=== PATIENT | female | born 1955 | race African-American/Black ===

== ENCOUNTER 2020-03-15 09:16 | Inpatient (IN) ==
[2020-03-15] MEDS ORDERED: IOPAMIDOL 100 ML BOTTLE IV ONE (09:17)
[2020-03-15] MEDS ORDERED: 0.9 % SODIUM CHLORIDE 1,000 ML IV ONE ×3 (09:25→14:42)
[2020-03-15 10:02] LABS: Basophils # (Auto) 0.04 K/mcL (0.00-0.20); Basophils % (Auto) 0.3 % (0.0-2.0); Eosinophils # (Auto) 0.12 K/mcL (0.00-0.70); Eosinophils % (Auto) 0.9 % (0.0-7.0); Hematocrit 53.8 % (36.0-48.0); Hemoglobin 17.9 g/dL (12.0-15.0); Lymphocytes % (Auto) 21.7 % (15.0-49.0); Mean Cell Volume 95.1 fL (80.0-100.0); Mean Corpuscular HGB Conc 33.3 g/dL (31.0-36.0); Mean Platelet Volume 8.7 fL (7.4-10.4); Monocytes # (Auto) 0.79 K/mcL (0.10-0.90); Monocytes % (Auto) 5.7 % (1.0-12.0); Neutrophils % (Auto) 71.4 % (38.0-78.0); Platelet Count 392 K/mcL (140-440); RBC 5.66 M/mcL (4.00-5.20); Red Cell Distribution Width 12.7 % (11.5-14.5); WBC 13.8 K/mcL (4.5-11.0)
[2020-03-15 10:12] LABS: POC Blood Urea Nitrogen 21 mg/dL (6-20); POC CO2 22 mmol/L (22-30); POC Calcium, Ionized 1.15 mmEq/L (1.16-1.32); POC Chloride 103 mEq/L (96-108); POC Creatinine 1.3 mg/dL (0.6-1.2); POC Glucose, Random 167 mg/dL (70-105); POC Hematocrit 51 % (36-48); POC Potassium 4.1 mEql/L (3.3-5.1); POC Sodium 136 mEq/L (133-145)
[2020-03-15 10:22] LABS: ALT/SGPT 16 U/L (<40); AST/SGOT 37 U/L (<32); Albumin 3.9 gm/dL (3.2-5.2); Alkaline Phosphatase 68 U/L (39-117); Bilirubin,Total 0.3 mg/dL (0.1-1.0); Blood Urea Nitrogen 19 mg/dL (8-23); Calcium 9.8 mg/dL (8.6-10.4); Carbon Dioxide 20 mmol/L (22-30); Chloride 101 mmol/L (96-108); Glomerular Filtration Rate 39; Glucose 184 mg/dL (70-105)
[2020-03-15] MEDS ORDERED: diphenhydrAMINE 50 MG/ML VIAL IV ONE (11:56)
[2020-03-15 13:07] LABS: Appearance,Urine CLEAR (Clear); Bilirubin,Urine Negative (Negative); Color,Urine YELLOW; Culture Indicated,Urine No; Glucose,Urine (UA) Negative (Negative); Ketones,Urine Negative (Negative); Leukocyte Esterase,Urine Negative /ug (Negative); Mucus,Urine FEW /hpf; Nitrate,Urine Negative (Negative); Protein,Urine Negative (Negative); Specific Gravity,Urine 1.014 (1.000-1.035); Urine Blood Negative (Negative); Urine Hyaline Cast 1 /lph (0-2); Urine RBC 1 /hpf (0-3); Urine Squamous Epithelial Cell 0 /hpf (0-4); Urine WBC < 1 /hpf (0-4); Urobilinogen,Urine Negative
[2020-03-15 13:40] LABS: POC Calcium, Ionized 1.07 mmEq/L (1.16-1.32); POC Creatinine 0.8 mg/dL (0.6-1.2); POC Potassium 4.3 mEql/L (3.3-5.1)
--- NOTE | 2020-03-15 15:59 | Cat Scan Report ---
History: Abdominal pain, nausea, vomiting, diarrhea, prior mastectomy for breast cancer technique: The patient was imaged following intravenous but no oral contrast scanning from the thoracic inlet through the symphysis pubis. Sagittal and coronal reformats were created along with axial MIPS images of the chest. The radiation exposure was limited using dose reduction technology. FINDINGS: CHEST: There is subtle subpleural fibrosis anteriorly in the lingula. This may be from prior radiation therapy. Contiguous with the minor fissure on the superior aspect of the right middle lobe there is a noncalcified pleural nodule which measures 3 x 4 mm. This is seen on axial image #51. There is a similar pleural-based nodule in the lingula seen on image #56 which measures there is no evidence of pulmonary metastasis or primary lung cancer. No emphysema is present. There is no pleural effusion. Mediastinum and hilar normal. The heart is normal in size and contour. There are numerous surgical clips in the right axilla. The patient is to have had reconstructive surgery of the right breast. There is no evidence of a chest wall tumor. Abdomen and pelvis: The liver is normal in size and homogeneous. There is mild generalized fatty infiltration. Spleen is normal in size and homogeneous. There is atrophy of the pancreas. The gallbladder is been removed. The bile ducts are nondilated. The adrenals are normal and symmetric. There is a parenchymal scar laterally in the upper portion of left kidney. The left kidney is otherwise normal. In the lower portion of the right kidney there is a 1.5 cm cyst which contains two calculi within the lumen. The larger calculus is 8 mm. No hydronephrosis or inflammation are present in either kidney. Patient has an elongated: With large amount liquefied stool. Small intestine also contains a moderate amount of liquid but is nondistended. There is no evidence of diverticulitis or inflammatory bowel disease. Uterus and ovaries have been removed. Urinary bladder appears normal. There is a small amount of ascites fluid deep in the lower pelvis. No adenopathy or mass are seen within the abdomen or pelvis. Bone windows show no lytic or blastic metastasis. There is severe disc space narrowing at L5-S1. Patient has a spinal stimulator with electrodes in the midthoracic spinal canal. The power pack is in the right flank. Scattered calcified plaques are present along the wall of normal caliber abdominal aorta. IMPRESSION: No evidence of metastasis Large amount of liquefied stool in the colon and large amount of ingested food in the stomach. No acute abnormality within the chest abdomen or pelvis. Small pleural/parenchymal scars contiguous with the right minor and left major fissures Interpreted and Authenticated by: Saúl Ware 03/15/20
--- NOTE | 2020-03-15 17:25 | Emergency Department Note ---
Syncope HPI General Chief Complaint: Syncope Stated Complaint: low BP, syncope, vomiting, diarrhea Time Seen by Provider: 03/15/20 10:01 Source: patient and EMS Mode of arrival: EMS Limitations: no limitations History of Present Illness HPI Narrative: Narrative: 64-year-old female presents with nausea, vomiting, and diarrhea and a syncopal episode this morning. States it all started at 8:30 AM. She woke up and felt kind of nauseated and then had multiple episodes of diarrhea and vomited 1 time. States her vomit smells horrible like stool. She did notice bright red in her stool and was not sure if it was more she no cherries that she ate or blood. States she did not get lightheaded and passed out until after the multiple episodes of diarrhea and vomiting. States she thinks she ate some chili last night that was not cooked all the way and that is her belief of what is going on. No cough or cold symptoms. No fever or chills. She does not have any pain anywhere. Just feels kind of lightheaded at times especially when getting up or moving. Related Data Home Medications Medication Instructions Recorded Confirmed diltiazem HCl 360 mg PO QDAY 11/21/19 11/21/19 esomeprazole magnesium [Nexium] 40 mg PO QDAY 11/21/19 11/21/19 fenofibrate 150 mg PO QDAY 11/21/19 11/21/19 levothyroxine [Synthroid] 25 mcg PO QDAY 11/21/19 11/21/19 lisinopril 20 mg PO QDAY 11/21/19 11/21/19 lorazepam 1 mg PO HS 11/21/19 11/21/19 methadone 20 mg PO HS 11/21/19 11/21/19 nortriptyline 20 mg PO QDAY 11/21/19 11/21/19 venlafaxine 225 mg PO QDAY 11/21/19 11/21/19 Previous Rx's Medication Instructions Recorded tramadol 50 mg PO Q6H PRN #20 tab 11/21/19 Allergies Allergy/AdvReac Type Severity Reaction Status Date / Time bee venom protein (honey bee) Allergy Severe Anaphylaxis Verified 03/15/20 09:25 meperidine [From Demerol] Allergy Severe Redness of Verified 03/15/20 09:25 Skin povidone-iodine Allergy Verified 03/15/20 09:25 [From Betadine] soap [From Betadine] Allergy Verified 03/15/20 09:25 Amoxicillin [From Augmentin] AdvReac Intermediate Vomiting Verified 03/15/20 09:25 clavulanic acid AdvReac Intermediate Vomiting Verified 03/15/20 09:25 [From Augmentin] metformin AdvReac Intermediate Nausea Verified 03/15/20 09:25 morphine AdvReac Intermediate Vomiting Verified 03/15/20 09:25 Review of Systems ROS ROS Narrative: Narrative: All systems ED: reviewed and negative except as stated. ON LICENSE OF [facility] Narrative Patient History Narrative: Narrative: Medical/Surgical/Family History All Active Problems (Updated 03/15/20 @ 17:35 by ANTONIO Leroy) Weakness (Acute) Orthostatic hypotension (Acute) Gastroenteritis (Acute) Syncope (Acute) Nausea vomiting and diarrhea (Acute) Acute dehydration (Acute) Anxiety (Acute) Hyperlipidemia (Acute) GERD (gastroesophageal reflux disease) (Acute) Hypertension (Acute) Hypothyroidism (Acute) Distal radial fracture (Acute) Abrasion (Acute) Fall (Acute) Surgical History History of appendectomy (Acute) History of cholecystectomy (Acute) History of hysterectomy (Acute) History of tonsillectomy (Acute) Social History Smoking Status: Current every day smoker Alcohol Intake Frequency: does not drink Substance Use: does not use Exam Narrative Narrative: Narrative: General Limitations: no limitations Head Head: Present atraumatic and normocephalic Eye Eye: Present normal appearance; Absent conjunctival injection ENT ENT: Present TM's normal bilaterally and normal external ear exam; Absent mucous membranes moist (dry), nasal congestion and nasal tones Neck Neck: Present normal inspection and trachea midline; Absent lymphadenopathy Chest Chest: Present symmetric chest wall rise Respiratory Respiratory: Present normal lung sounds bilaterally; Absent respiratory distress, rales/crackles, wheezes, stridor and accessory muscle use Cardiovascular Cardiovascular: Present regular rate and normal heart sounds Adbominal Abdominal: Present soft and normal bowel sounds; Absent distention, tenderness, guarding, rebound and rigidity Rectal Rectal: Present normal inspection, normal rectal tone, heme (-) stool and other (incontinent of stool, diarrhea) Extremities Extremities: Present normal inspection and normal capillary refill; Absent pedal edema Neurological Neurological: Present alert and oriented X3 Psychiatric Psychiatric: Present normal affect and normal mood Skin Skin: Present warm (WNL), dry, intact and normal color Course Course Course Narrative: [id number] the course of the stay we have rechecked orthostatic vital signs multiple times and she continues to have significant hypotension with standing. We have now given her 3 L of fluid and she is improving some but still continues to have diarrhea and some hypotension so we will continue to monitor her her at this time. Vital Signs Vital signs: Vital Signs Pulse Rate 80 03/15/20 09:16 Respiratory Rate 22 03/15/20 09:16 Blood Pressure 78/47 03/15/20 09:16 Pulse Oximetry (%) 97 03/15/20 09:16 Pulse Rate 70 03/15/20 17:01 Respiratory Rate 13 03/15/20 17:01 Blood Pressure 132/62 03/15/20 17:01 Pulse Oximetry (%) 97 03/15/20 17:01 MDM MDM Narrative Medical decision making narrative: Narrative: 539 I did speak with Dr[address] Obrien, hospitalist who agrees to accept this patient. Lab Data Lab results reviewed: Yes I reviewed the patient's lab results. Result diagrams: 03/15/20 09:31 03/15/20 09:31 Labs: Lab Results 03/15/20 03/15/20 03/15/20 Range/Units 09:31 09:31 09:31 WBC 13.8 H (4.5-11.0) K/mcL RBC 5.66 H (4.00-5.20) M/mcL Hgb 17.9 H (12.0-15.0) g/dL Hct 53.8 H (36.0-48.0) % POC Hct (36-48) % MCV 95.1 (80.0-100.0) fL MCH 31.6 (26.0-34.0) pg MCHC 33.3 (31.0-36.0) g/dL RDW 12.7 (11.5-14.5) % Plt Count 392 (140-440) K/mcL MPV 8.7 (7.4-10.4) fL Neut % (Auto) 71.4 (38.0-78.0) % Lymph % (Auto) 21.7 (15.0-49.0) % [place] % (Auto) 5.7 (1.0-12.0) % Eos % (Auto) 0.9 (0.0-7.0) % Baso % (Auto) 0.3 (0.0-2.0) % Lymph # (Auto) 3.00 (1.50-4.80) K/mcL [place] # (Auto) 0.79 (0.10-0.90) K/mcL Eos # (Auto) 0.12 (0.00-0.70) K/mcL Baso # (Auto) 0.04 (0.00-0.20) K/mcL Absolute Neutrophils 9.89 H (1.80-8.00) K/mcL POC Sodium (133-145) mEq/L Sodium 136 (133-145) mmol/L POC Potassium (3.3-5.1) mEql/L Potassium 4.4 (3.3-5.1) mmol/L POC Chloride (96-108) mEq/L Chloride 101 (96-108) mmol/L Carbon Dioxide 20 L (22-30) mmol/L POC Total CO2 (22-30) mmol/L Anion Gap 15.0 (8.0-16.0) POC BUN (6-20) mg/dL BUN 19 (8-23) mg/dL Creatinine 1.4 H (0.6-1.1) mg/dL POC Creatinine (0.6-1.2) mg/dL GFR Calculation 39 Glucose 184 H (70-105) mg/dL POC Glucose (70-105) mg/dL Calcium 9.8 (8.6-10.4) mg/dL POC WB Ioniz Calcium (1.16-1.32) mmEq/L Total Bilirubin 0.3 (0.1-1.0) mg/dL AST 37 H (<32) U/L ALT 16 (<40) U/L Alkaline Phosphatase 68 (39-117) U/L Troponin T < 0.01 (<0.03) ng/mL Total Protein 7.9 (5.9-8.4) gm/dL Albumin 3.9 (3.2-5.2) gm/dL Globulin 4.0 H (2.2-3.7) gm/dL Albumin/Globulin Ratio 1.0 (1.0-2.3) Urine Color Urine Appearance (Clear) Urine pH (5.0-9.0) Ur Specific [place] (1.000-1.035) Urine Protein (Negative) mg/dL Urine Glucose (UA) (Negative) mg/dL Urine Ketones (Negative) mg/dL Urine Occult Blood (Negative) mg/dL Urine Nitrate (Negative) Urine Bilirubin (Negative) mg/dL Urine Urobilinogen mg/dL Ur Leukocyte Esterase (Negative) /ug Urine RBC (0-3) /hpf Urine WBC (0-4) /hpf Ur Squamous Epith Cells (0-4) /hpf Urine Bacteria (0) /hpf Hyaline Casts (0-2) /lph Urine Mucus (None) /hpf Ur Culture Indicated? 03/15/20 03/15/20 03/15/20 Range/Units 10:02 11:20 13:35 WBC (4.5-11.0) K/mcL RBC (4.00-5.20) M/mcL Hgb (12.0-15.0) g/dL Hct (36.0-48.0) % POC Hct 51 H 45 (36-48) % MCV (80.0-100.0) fL MCH (26.0-34.0) pg MCHC (31.0-36.0) g/dL RDW (11.5-14.5) % Plt Count (140-440) K/mcL MPV (7.4-10.4) fL Neut % (Auto) (38.0-78.0) % Lymph % (Auto) (15.0-49.0) % [place] % (Auto) (1.0-12.0) % Eos % (Auto) (0.0-7.0) % Baso % (Auto) (0.0-2.0) % Lymph # (Auto) (1.50-4.80) K/mcL [place] # (Auto) (0.10-0.90) K/mcL Eos # (Auto) (0.00-0.70) K/mcL Baso # (Auto) (0.00-0.20) K/mcL Absolute Neutrophils (1.80-8.00) K/mcL POC Sodium 136 138 (133-145) mEq/L Sodium (133-145) mmol/L POC Potassium 4.1 4.3 (3.3-5.1) mEql/L Potassium (3.3-5.1) mmol/L POC Chloride 103 106 (96-108) mEq/L Chloride (96-108) mmol/L Carbon Dioxide (22-30) mmol/L POC Total CO2 22 21 L (22-30) mmol/L Anion Gap (8.0-16.0) POC BUN 21 H 22 H (6-20) mg/dL BUN (8-23) mg/dL Creatinine (0.6-1.1) mg/dL POC Creatinine 1.3 H 0.8 (0.6-1.2) mg/dL GFR Calculation Glucose (70-105) mg/dL POC Glucose 167 H 163 H (70-105) mg/dL Calcium (8.6-10.4) mg/dL POC WB Ioniz Calcium 1.15 L 1.07 L (1.16-1.32) mmEq/L Total Bilirubin (0.1-1.0) mg/dL AST (<32) U/L ALT (<40) U/L Alkaline Phosphatase (39-117) U/L Troponin T (<0.03) ng/mL Total Protein (5.9-8.4) gm/dL Albumin (3.2-5.2) gm/dL Globulin (2.2-3.7) gm/dL Albumin/Globulin Ratio (1.0-2.3) Urine Color Yellow Urine Appearance Clear (Clear) Urine pH 5.0 (5.0-9.0) Ur Specific [place] 1.014 (1.000-1.035) Urine Protein Negative (Negative) mg/dL Urine Glucose (UA) Negative (Negative) mg/dL Urine Ketones Negative (Negative) mg/dL Urine Occult Blood Negative (Negative) mg/dL Urine Nitrate Negative (Negative) Urine Bilirubin Negative (Negative) mg/dL Urine Urobilinogen Negative mg/dL Ur Leukocyte Esterase Negative (Negative) /ug Urine RBC 1 (0-3) /hpf Urine WBC < 1 (0-4) /hpf Ur Squamous Epith Cells 0 (0-4) /hpf Urine Bacteria None (0) /hpf Hyaline Casts 1 (0-2) /lph Urine Mucus Few A (None) /hpf Ur Culture Indicated? No Radiology Data Radiology results reviewed: Yes I reviewed the patient's radiology results. Discharge Plan Patient/Caregiver Discharge Instructions Pt seen by MANUFACTURING TEACHER/PA only: Yes Clinical Impression: Orthostatic hypotension, Gastroenteritis, Syncope, Nausea vomiting and diarrhea, Acute dehydration Patient Disposition: Xfer As Outpt/Obs ([facility]) Condition: Fair Follow up with: Emilia Carl ARNP [Primary Care Provider] - Prescriptions: No Action nortriptyline 10 mg Capsule 20 mg PO QDAY RF: 0 methadone 10 mg Tablet 20 mg PO HS RF: 0 lisinopril 20 mg Tablet 20 mg PO QDAY RF: 0 diltiazem HCl 360 mg Capsule,Extended Release 24 Hr 360 mg PO QDAY RF: 0 levothyroxine [Synthroid] 25 mcg Tablet 25 mcg PO QDAY RF: 0 esomeprazole magnesium [Nexium] 40 mg Capsule,Delayed Release(Dr/Ec) 40 mg PO QDAY RF: 0 lorazepam 1 mg Tablet 1 mg PO HS RF: 0 fenofibrate 150 mg Capsule 150 mg PO QDAY RF: 0 venlafaxine 225 mg Tablet Extended Release 24hr 225 mg PO QDAY RF: 0 tramadol 50 mg tablet 50 mg PO Q6H PRN (Reason: pain) Qty: 20 RF: 0
--- NOTE | 2020-03-15 18:11 | Internal Med History&Physical ---
HPI History of Present Illness Patient information: Note initiated : 03/15/20 at 6:09 pm Service Date, if different from initiated Date: [] Patient: Ida Victoria a 64 y/o F admitted on for low BP, syncope, vomiting, diarrhea. Chief Complaint: [] History of present illness: Ms. Victoria is a 64 year old F Presents to the ED after syncopal episode. Her son called EMS. Patient reports she was feeling fine yesterday. She had chili last night and believes that the meat was not cooked fully. She went to bed feeling okay and then this morning started having diarrhea. She describes as watery diarrhea and denies bloody stools. She said she has had between 10 and 15 episodes today. She also had nausea vomiting and her vomitus was brown nonbloody. Becoming quite lightheaded. And then passed out at home. He denies abdominal pain. In the ED she was found to be severely dehydrated with acute kidney injury. CT abdomen pelvis showed a lot of food in the stomach and stool in the colon but no other acute issues. Was given multiple boluses of IV fluid but is still quite symptomatic when she stands with multiple positive orthostatics. Review of Systems: Pertinent positives as above. Denies headache/fever/chills/chest or abdominal pain/cough/dyspnea. Many 10 point review of system reviewed negative PFSH PFSH All Active Problems (Updated 03/15/20 @ 17:35 by ANTONIO Leroy) Weakness (Acute) Orthostatic hypotension (Acute) Gastroenteritis (Acute) Syncope (Acute) Nausea vomiting and diarrhea (Acute) Acute dehydration (Acute) Anxiety (Acute) Hyperlipidemia (Acute) GERD (gastroesophageal reflux disease) (Acute) Hypertension (Acute) Hypothyroidism (Acute) Distal radial fracture (Acute) Abrasion (Acute) Fall (Acute) Surgical History History of appendectomy (Acute) History of cholecystectomy (Acute) History of hysterectomy (Acute) History of tonsillectomy (Acute) Social History smoking status: Current every day smoker alcohol intake frequency: does not drink substance use type: does not use MEDS/ALLERGIES Home Medications and Allergies Home Medications Medication Instructions Recorded Confirmed Type diltiazem HCl 360 mg PO QDAY 11/21/19 11/21/19 History esomeprazole magnesium [Nexium] 40 mg PO QDAY 11/21/19 11/21/19 History fenofibrate 150 mg PO QDAY 11/21/19 11/21/19 History levothyroxine [Synthroid] 25 mcg PO QDAY 11/21/19 11/21/19 History lisinopril 20 mg PO QDAY 11/21/19 11/21/19 History lorazepam 1 mg PO HS 11/21/19 11/21/19 History methadone 5 mg PO Q6H 11/21/19 03/15/20 History nortriptyline 20 mg PO QDAY 11/21/19 11/21/19 History tramadol 50 mg PO Q6H PRN #20 tab 11/21/19 Rx venlafaxine 225 mg PO QDAY 11/21/19 11/21/19 History pregabalin 200 mg PO TID 03/15/20 03/15/20 History Allergies Allergy/AdvReac Type Severity Reaction Status Date / Time bee venom protein (honey bee) Allergy Severe Anaphylaxis Verified 03/15/20 09:25 meperidine [From Demerol] Allergy Severe Redness of Verified 03/15/20 09:25 Skin povidone-iodine Allergy Verified 03/15/20 09:25 [From Betadine] soap [From Betadine] Allergy Verified 03/15/20 09:25 Amoxicillin [From Augmentin] AdvReac Intermediate Vomiting Verified 03/15/20 09:25 clavulanic acid AdvReac Intermediate Vomiting Verified 03/15/20 09:25 [From Augmentin] metformin AdvReac Intermediate Nausea Verified 03/15/20 09:25 morphine AdvReac Intermediate Vomiting Verified 03/15/20 09:25 EXAM Constitutional Vitals: Pulse Resp BP Pulse Ox 72 16 133/67 97 03/15/20 17:31 03/15/20 17:31 03/15/20 17:31 03/15/20 17:31 Exam: General: Alert, Awake, No acute Distress Eyes/N/T: EOMI, dry mucous membranes Head/Neck: neck supple, CV: RRR, 1/6SM Pulm: Clear b/l, no wheezing/rhonchi/rales Abd: soft, nontender, +BS x4 Ext: no clubbing/cyanosis/edema Neuro: Alert, no focal deficits, moves all extremities, Skin: warm/dry DATA Data Completed and Pending Labs: Labs from last 24 hours 03/15/20 03/15/20 03/15/20 13:35 11:20 10:02 WBC RBC Hgb Hct POC Hct 45 51 H MCV MCH MCHC RDW Plt Count MPV Neut % (Auto) Lymph % (Auto) [place] % (Auto) Eos % (Auto) Baso % (Auto) Lymph # (Auto) [place] # (Auto) Eos # (Auto) Baso # (Auto) Absolute Neutrophils POC Sodium 138 136 Sodium POC Potassium 4.3 4.1 Potassium POC Chloride 106 103 Chloride Carbon Dioxide POC Total CO2 21 L 22 Anion Gap POC BUN 22 H 21 H BUN Creatinine POC Creatinine 0.8 1.3 H GFR Calculation Glucose POC Glucose 163 H 167 H Calcium POC WB Ioniz Calcium 1.07 L 1.15 L Total Bilirubin AST ALT Alkaline Phosphatase Troponin T Total Protein Albumin Globulin Albumin/Globulin Ratio Urine Color Yellow Urine Appearance Clear Urine pH 5.0 Ur Specific [place] 1.014 Urine Protein Negative Urine Glucose (UA) Negative Urine Ketones Negative Urine Occult Blood Negative Urine Nitrate Negative Urine Bilirubin Negative Urine Urobilinogen Negative Ur Leukocyte Esterase Negative Urine RBC 1 Urine WBC < 1 Ur Squamous Epith Cells 0 Urine Bacteria None Hyaline Casts 1 Urine Mucus Few A Ur Culture Indicated? No 03/15/20 03/15/20 03/15/20 09:31 09:31 09:31 WBC 13.8 H RBC 5.66 H Hgb 17.9 H Hct 53.8 H POC Hct MCV 95.1 MCH 31.6 MCHC 33.3 RDW 12.7 Plt Count 392 MPV 8.7 Neut % (Auto) 71.4 Lymph % (Auto) 21.7 [place] % (Auto) 5.7 Eos % (Auto) 0.9 Baso % (Auto) 0.3 Lymph # (Auto) 3.00 [place] # (Auto) 0.79 Eos # (Auto) 0.12 Baso # (Auto) 0.04 Absolute Neutrophils 9.89 H POC Sodium Sodium 136 POC Potassium Potassium 4.4 POC Chloride Chloride 101 Carbon Dioxide 20 L POC Total CO2 Anion Gap 15.0 POC BUN BUN 19 Creatinine 1.4 H POC Creatinine GFR Calculation 39 Glucose 184 H POC Glucose Calcium 9.8 POC WB Ioniz Calcium Total Bilirubin 0.3 AST 37 H ALT 16 Alkaline Phosphatase 68 Troponin T < 0.01 Total Protein 7.9 Albumin 3.9 Globulin 4.0 H Albumin/Globulin Ratio 1.0 Urine Color Urine Appearance Urine pH Ur Specific [place] Urine Protein Urine Glucose (UA) Urine Ketones Urine Occult Blood Urine Nitrate Urine Bilirubin Urine Urobilinogen Ur Leukocyte Esterase Urine RBC Urine WBC Ur Squamous Epith Cells Urine Bacteria Hyaline Casts Urine Mucus Ur Culture Indicated? A/P Narrative A/P Narrative: A: *Acute gastroenteritis, nonbloody, with N/V/D: 2/2 likely food poisoining *Hypotension: improved in ED with IV fluids but still quite orthostatic *Non-gap Met acidosis: 2/2 above *KUSHAL on CKD III: *Hemoconcentrated: *DM w/neuropathy: on insulin pump *HTN: *GERD: *Hypothyroidism: *Chronic pain/neuropathy: *Tobacco abuse: P: -IVF's -Monitor electrolytes -Empiric antibiotics given severity of episode requiring hospitalization -Stool studies including EHEC -hold Dilt/lisinopril for hypotension and KUSHAL - -insulin pump -Smoking cessation counseling -ppx: Lovenox/home ppi full Code Time Spent With Patient Time: Total time spent is greater than 50% in coordination of care (as documented) at patient's floor/unit and/or counseling patient:
[2020-03-15] MEDS ORDERED: IPRATROPIUM/ALBUTEROL 3 ML AMPUL.NEB NEB PRN (20:43)
[2020-03-15] MEDS ORDERED: ONDANSETRON 4 MG/2 ML VIAL IV PRN (20:43)
[2020-03-15] MEDS ORDERED: DEXTROSE 50% 50 ML VIAL IV PRN (20:43)
[2020-03-15] MEDS ORDERED: POTASSIUM CHLORIDE 40 MEQ in DEXTROSE 5% IN WATER 500 ML IV PRN (20:43)
[2020-03-15] MEDS ORDERED: ACETAMINOPHEN 325 MG TABLET PO PRN (20:43)
[2020-03-15] MEDS ORDERED: MAGNESIUM SULFATE 2 GM/50 ML BAG IV PRN (20:43)
[2020-03-15] MEDS ORDERED: DEXTROSE 31 GM ORAL.SUSP PO PRN (20:43)
[2020-03-15] MEDS ORDERED: POTASSIUM CHLORIDE 20 MEQ TABLET PO PRN ×2 (20:43)
[2020-03-15 20:53] LABS: Blood Urea Nitrogen 18 mg/dL (8-23); Calcium 8.5 mg/dL (8.6-10.4); Carbon Dioxide 22 mmol/L (22-30); Chloride 101 mmol/L (96-108); Glomerular Filtration Rate 78; Glucose 89 mg/dL (70-105)
[2020-03-15] MEDS: INSULIN LISPRO 1 UNIT/0.01 ML UNIT SQ SCH (22:51)
[2020-03-15] MEDS ORDERED: METHADONE 5 MG TABLET PO ONE (23:25)
[2020-03-15] MEDS: 0.9 % SODIUM CHLORIDE 10 ML SYRINGE IV SCH (23:35)
[2020-03-15] MEDS: CIPROFLOXACIN 400 MG/200 ML BAG IV SCH (23:38)
[2020-03-15] MEDS: metroNIDAZOLE 500 MG/100 ML BAG IV SCH (23:39)
[2020-03-15] MEDS: 0.9 % SODIUM CHLORIDE 1,000 ML IV SCH (23:40)
[2020-03-15] MEDS: METHADONE 5 MG PO SCH (23:42)
[2020-03-16] MEDS ORDERED: LORazepam 1 MG TABLET ONE (00:06)
[2020-03-16] MEDS: METHADONE 5 MG PO SCH (03:46)
[2020-03-16] MEDS ORDERED: METHADONE 5 MG TABLET PO ONE (03:51)
[2020-03-16] MEDS: 0.9 % SODIUM CHLORIDE 10 ML SYRINGE IV SCH (04:41)
[2020-03-16] MEDS: metroNIDAZOLE 500 MG/100 ML BAG IV SCH (05:23)
[2020-03-16] MEDS: INSULIN LISPRO 1 UNIT/0.01 ML UNIT SQ SCH ×2 (06:55→11:26)
[2020-03-16] MEDS: METHADONE 5 MG TABLET PO SCH ×2 (06:59→11:25)
[2020-03-16 07:00] LABS: Basophils # (Auto) 0.03 K/mcL (0.00-0.20); Basophils % (Auto) 0.5 % (0.0-2.0); Eosinophils # (Auto) 0.36 K/mcL (0.00-0.70); Eosinophils % (Auto) 6.2 % (0.0-7.0); Hematocrit 40.7 % (36.0-48.0); Hemoglobin 13.4 g/dL (12.0-15.0); Lymphocytes # (Auto) 2.75 K/mcL (1.50-4.80); Lymphocytes % (Auto) 47.4 % (15.0-49.0); Mean Corpuscular HGB Conc 32.9 g/dL (31.0-36.0); Monocytes # (Auto) 0.49 K/mcL (0.10-0.90); Monocytes % (Auto) 8.4 % (1.0-12.0); Neutrophils % (Auto) 37.5 % (38.0-78.0); Platelet Count 293 K/mcL (140-440); RBC 4.33 M/mcL (4.00-5.20); Red Cell Distribution Width 12.6 % (11.5-14.5); WBC 5.8 K/mcL (4.5-11.0)
[2020-03-16] MEDS ORDERED: PANTOPRAZOLE 40 MG PACKET PO SCH (07:30)
[2020-03-16] MEDS ORDERED: LEVOTHYROXINE 25 MCG TABLET PO SCH (07:30)
[2020-03-16] MEDS ORDERED: METOCLOPRAMIDE 10 MG/2 ML VIAL IV PRN (07:46)
[2020-03-16] MEDS ORDERED: diphenhydrAMINE 50 MG/ML VIAL IV PRN (07:46)
--- NOTE | 2020-03-16 07:48 | Internal Med Progress Note ---
SUBJECTIVE Subjective Patient information: Note initiated : 03/16/20 at 7:44 am Service Date, if different from initiated Date: [] Patient: Ida Victoria a 64 y/o F admitted on 03/15/20 for low BP, syncope, vomiting, diarrhea. Chief Complaint: [] Interval history: History of present illness: Ms. Victoria is a 64 year old F Presents to the ED after syncopal episode. Her son called EMS. Patient reports she was feeling fine yesterday. She had chili last night and believes that the meat was not cooked fully. She went to bed feeling okay and then this morning started having diarrhea. She describes as watery diarrhea and denies bloody stools. She said she has had between 10 and 15 episodes today. She also had nausea vomiting and her vomitus was brown nonbloody. Becoming quite lightheaded. And then passed out at home. He denies abdominal pain. In the ED she was found to be severely dehydrated with acute kidney injury. CT abdomen pelvis showed a lot of food in the stomach and stool in the colon but no other acute issues. Was given multiple boluses of IV fluid but is still quite symptomatic when she stands with multiple positive orthostatics. 03/16 Feeling better today. Systolic blood pressures overnight have ranged from 99- 109. Laboratory work improved. Constitutional Vitals: Vital Signs Temp Pulse Resp BP Pulse Ox 98.2 F 74 12 99/50 93 03/16/20 04:29 03/16/20 04:29 03/16/20 04:29 03/16/20 04:29 03/16/20 04:29 Period Temp Pulse Resp BP Sys/Acosta Pulse Ox Last 24 Hr 98.2 F-100.0 F 69-94 12-27 78-136/47-94 91-98 Intake and Output 03/15/20 03/16/20 03/16/20 21:59 05:59 13:59 Intake Total 1999 600 100 Balance 1999 600 100 Weight 80.966 kg Intake & Output: Intake & Output 03/15/20 03/16/20 03/16/20 21:59 05:59 13:59 Intake Total 1999 600 100 Balance 1999 600 100 Weight 80.966 kg Intake: IV 2000 300 100 Sodium Chloride 0.9% 1,000 ml @ 2000 Wide Open IV BOLUS ONE Rx#: [id number] Oral 300 Other: Urine Appearance Clear Fem Cath Clear Urine Color Dark Yellow Fem Cath Bright Yellow Urine Odor Normal Fem Cath Normal Stool Size Small Small Stool Color Brown Brown Stool Consistency Liquid Liquid Loose Loose # Voids 1 # Bowel Movements 1 Exam: General: Alert, Awake, No acute Distress Eyes/N/T: EOMI, Head/Neck: neck supple, CV: RRR, 1/6SM Pulm: Clear b/l, no wheezing/rhonchi/rales Abd: soft, nontender, +BS x4 Ext: no clubbing/cyanosis/edema Neuro: Alert, no focal deficits, moves all extremities, Skin: warm/dry OBJ DATA Labs CBC & Chem 7: 03/16/20 05:51 03/16/20 05:51 Labs: Abnormal Lab Results 03/16/20 03/15/20 03/15/20 05:51 18:50 13:35 WBC RBC Hgb Hct POC Hct Neut % (Auto) 37.5 L Absolute Neutrophils Carbon Dioxide POC Total CO2 21 L POC BUN 22 H Creatinine POC Creatinine Glucose POC Glucose 163 H Calcium 8.5 L POC WB Ioniz Calcium 1.07 L AST Globulin Urine Mucus 03/15/20 03/15/20 03/15/20 11:20 10:02 09:31 WBC RBC Hgb Hct POC Hct 51 H Neut % (Auto) Absolute Neutrophils Carbon Dioxide 20 L POC Total CO2 POC BUN 21 H Creatinine 1.4 H POC Creatinine 1.3 H Glucose 184 H POC Glucose 167 H Calcium POC WB Ioniz Calcium 1.15 L AST 37 H Globulin 4.0 H Urine Mucus Few A 03/15/20 09:31 WBC 13.8 H RBC 5.66 H Hgb 17.9 H Hct 53.8 H POC Hct Neut % (Auto) Absolute Neutrophils 9.89 H Carbon Dioxide POC Total CO2 POC BUN Creatinine POC Creatinine Glucose POC Glucose Calcium POC WB Ioniz Calcium AST Globulin Urine Mucus Meds: Medications Acetaminophen (Tylenol) 650 mg PO Q6HP PRN PRN Reason: PAIN/FEVER > 101 Albuterol/Ipratropium (Duoneb) 3 ml NEB Q4HP PRN PRN Reason: Shortness Of Breath Dextrose (Dextrose 50%) 0 ml IV UD PRN PRN Reason: Hypoglycemia Diagnostic Test (Pha) (Accu-Chek) 1 each FS ACHS LIN Last Admin: 03/16/20 06:54 Dose: 1 each Documented by: Enoxaparin Sodium (Lovenox) 40 mg SQ DAILY [facility] Glucose (Insta-Glucose) 15 gm PO PRN PRN PRN Reason: Hypoglycemia Potassium Chloride 40 meq/ (Dextrose) 520 mls @ 130 mls/hr IV UD PRN PRN Reason: Potassium < 3 Magnesium Sulfate (Magnesium Sulfate) 2 gm in 50 mls @ 50 mls/hr IV UD PRN PRN Reason: Magnesium </= 1.6 Sodium Chloride (Sodium Chloride 0.9%) 1,000 mls @ 75 mls/hr IV .[id number] [facility] Stop: 03/16/20 23:22 Last Admin: 03/15/20 23:40 Dose: 75 mls/hr Documented by: Ciprofloxacin (Cipro) 400 mg in 200 mls @ 200 mls/hr IV Q12H [facility]; Protocol Last Infusion: 03/16/20 01:49 Dose: Infused Documented by: Metronidazole (Flagyl) 500 mg in 100 mls @ 100 mls/hr IV Q8H [facility]; Protocol Last Infusion: 03/16/20 06:32 Dose: Infused Documented by: Insulin Human Lispro (Humalog) 0 unit SQ ACHS [facility]; Protocol Last Admin: 03/16/20 06:55 Dose: Not Given Documented by: Levothyroxine Sodium (Synthroid) 25 mcg PO QAMAC [facility] Last Admin: 03/16/20 06:59 Dose: 25 mcg Documented by: Lorazepam (Ativan) 1 mg PO HS [facility] Methadone HCl (Dolophine) 5 mg PO Q6H [facility] Last Admin: 03/16/20 06:59 Dose: 5 mg Documented by: Nortriptyline HCl (Pamelor) 20 mg PO QDAY [facility] Ondansetron HCl (Zofran) 4 mg IV Q4HP PRN PRN Reason: Nausea And Vomiting Pantoprazole Sodium (Protonix) 40 mg PO QAMAC [facility] Last Admin: 03/16/20 06:54 Dose: Not Given Documented by: Potassium Chloride (Kdur) 40 meq PO UD PRN PRN Reason: Potssium is 3-3.5 Potassium Chloride (Kdur) 40 meq PO UD PRN PRN Reason: Potassium < 3 Pregabalin (Lyrica) 200 mg PO TID [facility] Sodium Chloride (Saline Flush) 10 ml IV Q8 [facility] Last Admin: 03/16/20 04:41 Dose: Not Given Documented by: Venlafaxine HCl (Effexor Xr) 150 mg PO DAILY [facility] Venlafaxine HCl (Effexor Xr) 75 mg PO DAILY [facility] A/P Narrative A/P Narrative: A: *Acute gastroenteritis, nonbloody, with N/V/D: 2/2 likely food poisoining *Hypotension: improved in ED with IV fluids but still quite orthostatic *Non-gap Met acidosis: 2/2 above *KUSHAL on CKD III: *Hemoconcentrated: *DM w/neuropathy: on insulin pump *HTN: on diltiazem and lisinopril at home but stopped lisinopril 1-month ago because blood pressure was low *GERD: *Hypothyroidism: *Chronic pain/neuropathy: *Tobacco abuse: P: -IVF's, check orthostatics -Monitor electrolytes -Empiric antibiotics given severity of episode requiring hospitalization -Stool studies including EHEC pending -hold Dilt and decrease dose upon d/c - -insulin pump off, SSI -Smoking cessation counseling -ppx: Lovenox/home ppi full Code Time Spent With Patient Time: Total time spent is greater than 50% in coordination of care (as documented) at patient's floor/unit and/or counseling patient: QUALITY VTE Deep Vein Thrombosis/Pulmonary Embolism Present on Admission: No
[2020-03-16] MEDS: CIPROFLOXACIN 400 MG/200 ML BAG IV SCH (08:03)
[2020-03-16 08:05] LABS: ALT/SGPT 16 U/L (<40); AST/SGOT 24 U/L (<32); Albumin 3.2 gm/dL (3.2-5.2); Albumin/Globulin Ratio 1.1 (1.0-2.3); Alkaline Phosphatase 48 U/L (39-117); Bilirubin,Direct < 0.2 mg/dL (<0.3); Bilirubin,Total 0.4 mg/dL (0.1-1.0); Blood Urea Nitrogen 12 mg/dL (8-23); Calcium 8.4 mg/dL (8.6-10.4); Carbon Dioxide 22 mmol/L (22-30); Chloride 103 mmol/L (96-108); Globulin 2.8 gm/dL (2.2-3.7); Glomerular Filtration Rate 96; Glucose 84 mg/dL (70-105); Lactate Dehydrogenase 205 U/L (135-225); Phosphorous 2.6 mg/dL (2.5-4.5); Triglycerides 250 mg/dL (<150); Uric Acid 3.8 mg/dL (2.5-8.0)
[2020-03-16] MEDS ORDERED: VENLAFAXINE 75 MG CAP.XL.24H PO SCH (09:00)
[2020-03-16] MEDS ORDERED: PREGABALIN 100 MG CAPSULE PO SCH (09:00)
[2020-03-16] MEDS ORDERED: VENLAFAXINE 150 MG CAP.XL.24H PO SCH (09:00)
[2020-03-16] MEDS ORDERED: ENOXAPARIN 40 MG/0.4 ML SYRINGE SQ SCH (09:00)
[2020-03-16] MEDS ORDERED: NORTRIPTYLINE 10 MG CAPSULE PO SCH (09:00)
[2020-03-16] MEDS ORDERED: VENLAFAXINE 225 MG PO SCH (09:00)
--- NOTE | 2020-03-16 09:25 | Discharge Summary ---
Discharge Provider Provider Patient information: Note initiated : 03/16/20 at 9:24 am Service Date, if different from initiated Date: [] Patient: Ida Victoria 64 y/o F admitted on 03/15/20 for low BP, syncope, vomiting, diarrhea. Chief Complaint: [] Date of admission: 03/15/20 20:40 Discharge date: 03/16/20 Primary care physician: Emilia Carl Consults: 03/15/20 17:33 Consult to Physician [CONS] Stat Comment: Consulting Provider: Humble Moeller Reason For Exam: Physician to Consult Discharge Meds Discharge Medications Home Medications esomeprazole magnesium [Nexium] 40 mg PO QDAY 11/21/19 [History Confirmed 03/15/20 Last Taken 03/14/20 11:00] fenofibrate 150 mg PO QDAY 11/21/19 [History Confirmed 03/15/20 Last Taken 03/14/20 11:00] levothyroxine [Synthroid] 25 mcg PO QDAY 11/21/19 [History Confirmed 03/15/20 Last Taken 03/14/20 07:00] lorazepam 1 mg PO HS 11/21/19 [History Confirmed 03/15/20 Last Taken 03/14/20 21:00] methadone 5 mg PO Q6H 11/21/19 [History Confirmed 03/15/20 Last Taken 03/14/20 21:00] nortriptyline 20 mg PO QDAY 11/21/19 [History Confirmed 03/15/20 Last Taken 03/14/20 16:00] venlafaxine 225 mg PO QDAY 11/21/19 [History Confirmed 03/15/20 Last Taken 03/14/20 16:00] Trulicity 0.75 mg SUBCUT WEEKLY 03/15/20 [History Confirmed 03/15/20 Last Taken 03/12/20 11:00] pregabalin 200 mg PO TID 03/15/20 [History Confirmed 03/15/20 Last Taken 03/14/20 21:00] diltiazem HCl 120 mg PO QDAY #30 cap 03/16/20 [Rx Last Taken Unknown] COURSE Hospital Course Hospital course: Interval history: History of present illness: Ms. Victoria is a 64 year old F Presents to the ED after syncopal episode. Her son called EMS. Patient reports she was feeling fine yesterday. She had chili last night and believes that the meat was not cooked fully. She went to bed feeling okay and then this morning started having diarrhea. She describes as watery diarrhea and denies bloody stools. She said she has had between 10 and 15 episodes today. She also had nausea vomiting and her vomitus was brown nonbloody. Becoming quite lightheaded. And then passed out at home. He denies abdominal pain. In the ED she was found to be severely dehydrated with acute kidney injury. CT abdomen pelvis showed a lot of food in the stomach and stool in the colon but no other acute issues. Was given multiple boluses of IV fluid but is still quite symptomatic when she stands with multiple positive orthostatics. 03/16 Feeling better today. Systolic blood pressures overnight have ranged from 99- 109. Laboratory work improved. *No further diarrhea. No vomiting. Patient doing well. Ambulated in the hallway without any lightheadedness or gait abnormalities, feels stable. Patient recovered more quickly than expected. Stable for discharge. A: *Acute gastroenteritis, nonbloody, with N/V/D: 2/2 likely food poisoning *Hypotension: improved in ED with IV fluids but still quite orthostatic *Non-gap Met acidosis: 2/2 above *KUSHAL on CKD III: *Hemoconcentrated: *DM w/neuropathy: on insulin pump *HTN: on diltiazem and lisinopril at home but stopped lisinopril 1-month ago because blood pressure was low *GERD: *Hypothyroidism: *Chronic pain/neuropathy: *Tobacco abuse: Discharge diagnosis: Gastroenteritis hypotension acute kidney injury Secondary discharge diagnosis: Diabetes hypertension hypothyroidism GERD chronic pain neuropathy tobacco abuse Time Spent with Patient Time attestation: Total time spent providing and/or coordinating discharge services: Time spent: Greater than 30 minutes EXAM Constitutional Vitals: Temp Pulse Resp BP Pulse Ox 97.9 F 71 18 105/52 94 03/16/20 07:58 03/16/20 07:58 03/16/20 07:58 03/16/20 07:58 03/16/20 07:58 Discharge Data Data Completed and Pending Labs on day of discharge: Labs from last 24 hours 03/16/20 03/16/20 03/15/20 05:51 05:51 18:50 WBC 5.8 RBC 4.33 Hgb 13.4 Hct 40.7 POC Hct MCV 94.0 MCH 30.9 MCHC 32.9 RDW 12.6 Plt Count 293 MPV 9.0 Neut % (Auto) 37.5 L Lymph % (Auto) 47.4 Bonner % (Auto) 8.4 Eos % (Auto) 6.2 Baso % (Auto) 0.5 Lymph # (Auto) 2.75 Bonner # (Auto) 0.49 Eos # (Auto) 0.36 Baso # (Auto) 0.03 Absolute Neutrophils 2.17 POC Sodium Sodium 137 136 POC Potassium Potassium 3.9 4.4 POC Chloride Chloride 103 101 Carbon Dioxide 22 22 POC Total CO2 Anion Gap 12.0 13.0 POC BUN BUN 12 18 Creatinine 0.6 0.8 POC Creatinine GFR Calculation 96 78 Glucose 84 89 POC Glucose Uric Acid 3.8 Calcium 8.4 L 8.5 L POC WB Ioniz Calcium Phosphorus 2.6 Magnesium 1.7 1.7 Total Bilirubin 0.4 Direct Bilirubin < 0.2 GGT 28 AST 24 ALT 16 Alkaline Phosphatase 48 Lactate Dehydrogenase 205 Troponin T Total Protein 6.0 Albumin 3.2 Globulin 2.8 Albumin/Globulin Ratio 1.1 Triglycerides 250 H Urine Color Urine Appearance Urine pH Ur Specific [place] Urine Protein Urine Glucose (UA) Urine Ketones Urine Occult Blood Urine Nitrate Urine Bilirubin Urine Urobilinogen Ur Leukocyte Esterase Urine RBC Urine WBC Ur Squamous Epith Cells Urine Bacteria Hyaline Casts Urine Mucus Ur Culture Indicated? Stool Norovirus Ag 03/15/20 03/15/20 03/15/20 13:35 11:20 10:20 WBC RBC Hgb Hct POC Hct 45 MCV MCH MCHC RDW Plt Count MPV Neut % (Auto) Lymph % (Auto) Bonner % (Auto) Eos % (Auto) Baso % (Auto) Lymph # (Auto) Bonner # (Auto) Eos # (Auto) Baso # (Auto) Absolute Neutrophils POC Sodium 138 Sodium POC Potassium 4.3 Potassium POC Chloride 106 Chloride Carbon Dioxide POC Total CO2 21 L Anion Gap POC BUN 22 H BUN Creatinine POC Creatinine 0.8 GFR Calculation Glucose POC Glucose 163 H Uric Acid Calcium POC WB Ioniz Calcium 1.07 L Phosphorus Magnesium Total Bilirubin Direct Bilirubin GGT AST ALT Alkaline Phosphatase Lactate Dehydrogenase Troponin T Total Protein Albumin Globulin Albumin/Globulin Ratio Triglycerides Urine Color Yellow Urine Appearance Clear Urine pH 5.0 Ur Specific [place] 1.014 Urine Protein Negative Urine Glucose (UA) Negative Urine Ketones Negative Urine Occult Blood Negative Urine Nitrate Negative Urine Bilirubin Negative Urine Urobilinogen Negative Ur Leukocyte Esterase Negative Urine RBC 1 Urine WBC < 1 Ur Squamous Epith Cells 0 Urine Bacteria None Hyaline Casts 1 Urine Mucus Few A Ur Culture Indicated? No Stool Norovirus Ag Pending 03/15/20 03/15/20 03/15/20 10:02 09:31 09:31 WBC RBC Hgb Hct POC Hct 51 H MCV MCH MCHC RDW Plt Count MPV Neut % (Auto) Lymph % (Auto) Bonner % (Auto) Eos % (Auto) Baso % (Auto) Lymph # (Auto) Bonner # (Auto) Eos # (Auto) Baso # (Auto) Absolute Neutrophils POC Sodium 136 Sodium 136 POC Potassium 4.1 Potassium 4.4 POC Chloride 103 Chloride 101 Carbon Dioxide 20 L POC Total CO2 22 Anion Gap 15.0 POC BUN 21 H BUN 19 Creatinine 1.4 H POC Creatinine 1.3 H GFR Calculation 39 Glucose 184 H POC Glucose 167 H Uric Acid Calcium 9.8 POC WB Ioniz Calcium 1.15 L Phosphorus Magnesium Total Bilirubin 0.3 Direct Bilirubin GGT AST 37 H ALT 16 Alkaline Phosphatase 68 Lactate Dehydrogenase Troponin T < 0.01 Total Protein 7.9 Albumin 3.9 Globulin 4.0 H Albumin/Globulin Ratio 1.0 Triglycerides Urine Color Urine Appearance Urine pH Ur Specific [place] Urine Protein Urine Glucose (UA) Urine Ketones Urine Occult Blood Urine Nitrate Urine Bilirubin Urine Urobilinogen Ur Leukocyte Esterase Urine RBC Urine WBC Ur Squamous Epith Cells Urine Bacteria Hyaline Casts Urine Mucus Ur Culture Indicated? Stool Norovirus Ag 03/15/20 09:31 WBC 13.8 H RBC 5.66 H Hgb 17.9 H Hct 53.8 H POC Hct MCV 95.1 MCH 31.6 MCHC 33.3 RDW 12.7 Plt Count 392 MPV 8.7 Neut % (Auto) 71.4 Lymph % (Auto) 21.7 Bonner % (Auto) 5.7 Eos % (Auto) 0.9 Baso % (Auto) 0.3 Lymph # (Auto) 3.00 Bonner # (Auto) 0.79 Eos # (Auto) 0.12 Baso # (Auto) 0.04 Absolute Neutrophils 9.89 H POC Sodium Sodium POC Potassium Potassium POC Chloride Chloride Carbon Dioxide POC Total CO2 Anion Gap POC BUN BUN Creatinine POC Creatinine GFR Calculation Glucose POC Glucose Uric Acid Calcium POC WB Ioniz Calcium Phosphorus Magnesium Total Bilirubin Direct Bilirubin GGT AST ALT Alkaline Phosphatase Lactate Dehydrogenase Troponin T Total Protein Albumin Globulin Albumin/Globulin Ratio Triglycerides Urine Color Urine Appearance Urine pH Ur Specific [place] Urine Protein Urine Glucose (UA) Urine Ketones Urine Occult Blood Urine Nitrate Urine Bilirubin Urine Urobilinogen Ur Leukocyte Esterase Urine RBC Urine WBC Ur Squamous Epith Cells Urine Bacteria Hyaline Casts Urine Mucus Ur Culture Indicated? Stool Norovirus Ag Discharge Plan Patient/Caregiver Discharge Instructions Activity: increase activity as tolerated Diet: Consistent Carbohydrate Prescriptions: Continued nortriptyline 10 mg Capsule 20 mg PO QDAY RF: 0 methadone 10 mg Tablet 5 mg PO Q6H RF: 0 levothyroxine [Synthroid] 25 mcg Tablet 25 mcg PO QDAY RF: 0 esomeprazole magnesium [Nexium] 40 mg Capsule,Delayed Release(Dr/Ec) 40 mg PO QDAY RF: 0 lorazepam 1 mg Tablet 1 mg PO HS RF: 0 fenofibrate 150 mg Capsule 150 mg PO QDAY RF: 0 venlafaxine 225 mg Tablet Extended Release 24hr 225 mg PO QDAY RF: 0 pregabalin 200 mg Capsule 200 mg PO TID RF: 0 Trulicity 0.75 mg/0.5 mL Pen Injector 0.75 mg SUBCUT WEEKLY RF: 0 Changed diltiazem HCl 360 mg Capsule,Extended Release 24 Hr 120 mg PO QDAY Qty: 30 RF: 0 Follow Up Plan Follow up with: Emilia Carl ARNP [Primary Care Provider] - Patient Disposition: Home, Self-Care Prognosis: Fair QUALITY VTE Deep Vein Thrombosis/Pulmonary Embolism Present on Admission: No
[2020-03-16] MEDS: 0.9 % SODIUM CHLORIDE 1,000 ML IV SCH (10:39)
[2020-03-16] MEDS ORDERED: LORazepam 1 MG TABLET PO SCH (21:00)
== END 2020-03-16 13:15 | disposition home or self-care (01) | DRG 392 ==
LOC: ED 09:16 → MEDSUR 20:40
PROVIDERS: ADMIT Internal Medicine; ATTEND Internal Medicine